=== PATIENT | female | born 1955 | race Asian ===

== ENCOUNTER 2019-07-06 18:03 | Emergency (ER) | payer BC ==
[~2019-07-06] VITALS: Ht 157.5 cm; Wt 61.2 kg
[~2019-07-06 18:03] MED LIST: METO25TA6 PO
[2019-07-06 18:13] VITALS: BP_SYST 176
[2019-07-06 19:09] VITALS: BP_SYST 144
== END 2019-07-06 19:09 | disposition home or self-care (01) ==
LOC: SED 18:03
DX: I10 Essential (primary) hypertension (principal)
CPT/HCPCS: 99281